=== PATIENT | male | born 1960 | race Caucasian/White ===

== ENCOUNTER 2022-12-20 06:08 | Observation (INO) ==
--- NOTE | 2022-12-13 10:42 | Anesthesiology Consultation ---
Date of Service December 13, 2022 Assessment & Plan (1) Encounter for pre-operative examination: - will request most recent [facility] cardiology office note and any available stress echo, echo, carotid or cardiac catheterization testing. - check BSG am DOS. - Per flat sorter processor on 12/13/2022: No known infectious disease contacts, current infectious disease symptoms in past 10 days or COVID positive test result in the past 90 days. Chart Review Chart Review: Pending: Refer to Additional Notes / Consult section and Patient NOT seen in Pre Admission Testing History Surgery Operation Date: 12/20/22 07:30 Proposed Procedures p Robotic assisted Laparoscopic Radical Retropubic Prostatectomy, Possible Open Pelvic Lymph Node Dissection - Reinaldo Calhoun MD Height/Weight Height: 6 ft Weight: 100.698 kg Allergies Allergy/AdvReac Type Severity Reaction Status Date / Time lisinopril Allergy Unknown Verified 12/13/22 07:36 rosiglitazone [From Avandia] Allergy Unknown Verified 12/13/22 07:36 Medications Home Medications Medication Instructions Recorded Confirmed Last Taken aspirin 81 mg tablet,delayed 81 mg PO HS 02/01/21 12/13/22 Unknown release (Adult Low Dose Aspirin) duloxetine 60 mg capsule,delayed 60 mg PO HS 02/01/21 12/13/22 Unknown release insulin glargine U-300 conc 300 100 unit subcut QAM 02/01/21 12/13/22 Unknown unit/mL (1.5 mL) subcutaneous pen (Toujeo SoloStar U-300 Insulin) levothyroxine 200 mcg capsule 200 mcg PO QAM 02/01/21 12/13/22 Unknown losartan 25 mg tablet 25 mg PO DAILY 02/01/21 12/13/22 Unknown meloxicam 15 mg tablet 15 mg PO DAILY 02/01/21 12/13/22 Unknown metformin 1,000 mg tablet 1,000 mg PO BID 02/01/21 12/13/22 Unknown pioglitazone 15 mg tablet 15 mg PO DAILY 02/01/21 12/13/22 Unknown sildenafil 50 mg tablet 50 mg PO DAILY PRN sexual 02/01/21 12/13/22 Unknown intercourse simvastatin 40 mg tablet 40 mg PO HS 02/01/21 12/13/22 Unknown dulaglutide 4.5 mg/0.5 mL 4.5 mg subcut Q7D 12/13/22 12/13/22 Unknown subcutaneous pen injector (Trulicity) Past Medical History Medical History (Updated 12/13/22 @ 10:37 by Sheri Escalante PA-C) CKD (chronic kidney disease) stage 2, GFR 60-89 ml/min Diabetes mellitus, type 2 IDDM Hyperlipemia Hypertension Hypothyroidism Prostate cancer Sleep apnea per PCP records Past Family History Family History Mother Cancer Lung cancer Brother Prostate cancer Sister Cancer Leukemia Past Surgical History Surgical History History of carpal tunnel surgery History of lumbar surgery x3 Hx of arthroscopy of right knee Hx of colonoscopy Hx of knee surgery rt. Social History Smoking Status: Never smoker Do You Dip or Chew Tobacco: Yes (1 can/2 days; advised) Hx Alcohol Use: Yes alcohol intake frequency: holidays/special occasions only Hx Substance Use: No substance use type: does not use Lab Results Anesthesia Preop Results Results Anesthesia Widget: Urine Appearance Clear 12/05/22 Testing Laboratory Results 11/30/2022 WBC: 7.3 H/H: 16/48 PLATELETS: 200 SODIUM: 139 POTASSIUM: 4.6 CHLORIDE: 109 CO2: 28 BUN: 26 CREATININE: 1.2 GLUCOSE: 150 Urine culture: no growth < 1,000 CFU/ml Electrocardiogram Date: 11/30/22 Sinus bradycardia with sinus arrhythmia, rate 48 bpm Chest X-Ray Date: 11/30/22 No acute cardiopulmonary disease Other Testing Bone scan 09/07/22 Degenerative foci of uptake are seen without suspicious lesions. In particular the left iliac wing and left superior pubic ramus lesions seen on prior CT did not demonstrate corresponding uptake. Abdomen pelvis CT 09/05/22 1. There are a few sclerotic lesions involving the left iliac bone and left superior pubic ramus. Sclerotic metastatic disease cannot be excluded in this patient with concern for prostate cancer. A few lucencies are nonspecific. 2. Prostatomegaly is seen. Diffuse bladder wall thickening may represent chronic outlet obstruction.
[~2022-12-20 06:08] MED LIST: HEPARIN SOD 5,000 UNIT/0.5 ML VIAL SQ SCH; LR 15ML/HR IV SCH; ceFAZolin 2000MG 2,000 MG/15 ML SYR IV SCH
[2022-12-20] MEDS: HEPARIN SOD 5,000 UNIT/0.5 ML VIAL SQ SCH ×3 (06:43→21:26)
[2022-12-20] MEDS ORDERED: MIDAZOLAM HCL 1 MG/ML 2ML VIAL ONE (06:52)
[2022-12-20] MEDS ORDERED: fentaNYL citrate PF 100 MCG/2 ML VIAL ONE (06:52)
[2022-12-20] MEDS ORDERED: BUPIVACAINE 0.5 % 5 MG/1 ML MPF 30ML VIAL ONE (07:07)
[2022-12-20] MEDS ORDERED: ACETAMINOPHEN 1000 MG/100 ML IV IV ONE (07:09)
--- NOTE | 2022-12-20 07:18 | History & Physical Bridge Note ---
Date of Service December 20, 2022 History & Physical Bridge Note I have examined the patient, reviewed the History & Physical and in the interval since the performance of the History & Physical I have noted the following changes of clinical significance: no changes noted
[2022-12-20] MEDS ORDERED: ONDANSETRON INJ 2 MG/ML 2 ML VIAL IV PRN ×2 (07:27→11:38)
[2022-12-20] MEDS ORDERED: ATROPINE SULFATE 0.1 MG/ML 10ML SYR IV PRN (07:27)
[2022-12-20] MEDS ORDERED: ePHEDrine sulfate 50 MG/ML AMP IV PRN (07:27)
[2022-12-20] MEDS ORDERED: HYDROmorphone INJ 2 MG/ML SYR/VIAL ONE (08:00)
[2022-12-20] MEDS ORDERED: ONDANSETRON INJ 2 MG/ML 2 ML VIAL ONE (08:18)
[2022-12-20] MEDS ORDERED: GLYCOPYRROLATE 0.2 MG/ML VIAL ONE (08:18)
[2022-12-20] MEDS ORDERED: LIDOCAINE 2% 2 ML VIAL/AMP(20MG/ML) INFIL ONE (08:18)
[2022-12-20] MEDS ORDERED: DEXAMETHASONE SOD INJ 4 MG/ML VIAL ONE (08:18)
[2022-12-20] MEDS ORDERED: PROPOFOL IV EMULSION 10 MG/ML 20 ML VIAL IV ONE (08:18)
[2022-12-20] MEDS ORDERED: NEOSTIGMINE METHYLSULFATE 1 MG/ML 10ML VIAL ONE (08:18)
[2022-12-20] MEDS ORDERED: SURGICEL ABSORB HEMOSTAT 2IN X 14IN TOP ONE (08:50)
[2022-12-20] MEDS ORDERED: FLOSEAL HEMOSTATIC MATRIX 10ML TOP ONE (08:50)
[2022-12-20] MEDS ORDERED: ceFAZolin 1000MG 1,000 MG/7.5 ML SYR IV ONE (08:51)
[2022-12-20] MEDS ORDERED: SUGAMMADEX SODIUM 200 MG/2 ML VIAL IV ONE (09:11)
--- NOTE | 2022-12-20 10:23 | Operative Report ---
PG Post Operative Report Pre & Post Diagnosis Operation Date: 12/20/22 07:30 Pre-Op Diagnosis: Prostate Cancer Post-Op Diagnosis: Prostate Cancer I identified the patient and participated in the time-out.: Yes Procedure Operation Date: 12/20/22 07:30 Actual Procedures p Robotic assisted Laparoscopic Prostatectomy, Pelvic Lymph Node Dissection(Not Applicable) - Reinaldo Calhoun MD Surgeon Reinaldo Calhoun MD Diamond Setter Layne Long Estimated Blood Loss 100 Findings Consistent with Post-Op Diagnosis Specimens 1. Periprostatic fat 2. Right pelvic lymph nodes 3. Left pelvic lymph nodes 4. Prostate seminal vesicle Description of Procedure The patient was identified in the preoperative holding area, appropriate informed consents were reviewed and completed, and he was transported to the operating suite. Subcutaneous heparin was administered in the pre-operative holding area. Upon arrival in the operating suite, he received appropriate antibiotics and general anesthesia. He was positioned in dorsal lithotomy, a B&O suppository was inserted after digital rectal exam, and he was prepped and draped in standard fashion. A Waldron catheter was inserted in the sterile field. A Veress needle was passed per umbilicus with uniform insufflation of the abdomen to 15mmHg. He was placed in steep Trendelenburg position. A periumbilical incision was then made to accommodate a 12mm Visiport with 10mm 0degree laparoscope. Inspection of the abdomen was carried out, and there was no evidence of traumatic entry or injury secondary to the Veress needle. After confirming a clear anterior abdominal wall, ports were subsequently placed in standard robotic prostatectomy fashion without incident. To begin the robotic portion of the case, the left lateral aspect of the sigmoid was mobilized off of the left pelvic side wall to allow the pouch of Addison to be appropriately visualized. I then made an incision in the pouch of Addison, overlying the seminal vesicles. Both SVs as well as the ampullae of the vasa were entirely dissected, with the vasa transected 3cm from the prostate. The medial umbilical ligaments were then controlled with bipolar electrocautery just inferior to the umbilicus. Following cauterization, they were divided utilizing monopolar cautery. A peritoneal incision was carried from this location to the medial aspect of the internal inguinal rings bilaterally with care to avoid opening through the ring. This incision was concluded when the vas deferens was reached. Dissection of the bladder and prostate off of the posterior aspect of the pubic arch was completed allowing full visualization of the prostate. The fat overlying the prostate was removed en bloc and passed off the table as a specimen labeled "periprostatic fat". The endopelvic fascia was cleared during this portion of the procedure, and subsequently opened - first on the right and then the left. The incision through the endopelvic fascia began near the prostate-bladder junction and was carried to the apex with extreme care to preserve all lateral levator musculature as well as the periurethral m usculature and sphincter complex. I additionally preserved the puboprostatic ligaments. I then controlled the DVC with a 3-0 V-lock suture in overlapping/figure of 8 fashion. The lymph node dissection was then conducted. External iliac vessels were identified on the pelvic side wall. The packet of fat and lymphatic tissue that resides just under the iliac vein was elevated and off of the vein with a split and roll technique. The packet was dissected laterally to the circumflex vein and distally to the obturator nerve which was preserved. The proximal aspect of the packet was carried towards the bifurcation of the iliac vessels. A combination of monopolar and bipolar cautery were used to assist with control. After completing the dissection on both sides, the packets were collected and passed off of the table as specimens labeled "pelvic lymph nodes". My attention then returned to the prostate, with identification of the bladder neck aided by gentle traction on the Waldron catheter and lateral to medial pressure at the presumed level of the bladder neck with the robotic instruments. An anterior cystotomy was made, the Waldron balloon deflated and the catheter guided through the incision to allow anterior retraction. I attempted to preserve maximal bladder neck musculature as I circumferentially dissected around the bladder neck. After incision through the posterior aspect of the mucosa, the dissection was carried through detrusor muscle until the bilateral ampullae of the vasa were identified. The previously dissected vasa and SVs were brought through the incision and used to elevated the prostate anteriorly. A posterior plane behind the prostate was then developed - splitting Denonvilliers's fascia. This dissection was carried as far as possible towards the apex as well as far as possible laterally. An incision in the lateral prostatic fascia was then made bilaterally to facilitate control of the vascular pedicles and preservation of the nerve bundles. Vasculature running along the posterior/lateral aspect of the prostate was preserved as well as the tissue containing the nerves. The pedicles were then controlled with a series of Weck clips. The apical attachments of the prostate were remaining at that stage. The DVC was divided after control with bipolar cautery over the prostate. Continuous inspection from anterior and lateral views allowed me to closely follow the apical contour of the prostate and maximally preserve urethral length and tissue. The prostate was entirely freed at that point, and collected in an EndoCatch bag before being moved out of the field of vision. Hemostasis was confirmed and anastomosis of the bladder and urethra was completed utilizing a double armed V- Lock stitch. A new Waldron catheter was inserted and the anastomosis tested with irrigation. There was no evidence of leak. A madeline style stitch was placed bilaterally to functionally marsupialize the area of the lymph node dissection. The robot was undocked, the specimen extracted through expansion of the ericka- umbilical camera port. Of note, an umbilical hernia was noted at the beginning of the case and I opened through the umbilicus to close the fascial defect. The fascia was closed with a series of 0-PDS figure of 8 stitches. The right clothing sales assistant port was closed in two layers - with a figure of 8 0-Vicryl to reapproximate the fascia followed by 4-0 Monocryl to close the skin. Monocryl was used to close all other skin incisions. All wounds were dressed with Dermabond. The case was concluded and the patient taken to the PACU in stable condition. Layne Long assisted from incision to closure I attest to the content of the Intraoperative Record and any orders documented therein. Any exceptions are noted below.
[2022-12-20] MEDS: HYDROmorphone INJ 1 MG/ML SYRINGE IV PRN ×3 (10:50→11:05)
--- NOTE | 2022-12-20 11:36 | Anesthesiology Progress Note ---
Date of Service December 20, 2022 Anesthesia Post Procedure Vital Signs Vital Signs: Temp Pulse Pulse Resp BP Pulse Ox O2 Del Method 12/20/22 11:30 60 16 151/75 H 96 Nasal Cannula 12/20/22 11:20 36.6 C 59 L 16 167/85 H 98 Nasal Cannula 12/20/22 11:10 57 L 16 155/71 H 97 Nasal Cannula 12/20/22 11:00 55 L 16 157/79 H 100 Nasal Cannula 12/20/22 10:50 55 L 18 163/80 H 97 Room Air 12/20/22 10:40 55 L 14 169/97 H 100 Oxymask 12/20/22 10:30 36.2 C L 58 L 14 168/88 H 100 Oxymask 12/20/22 06:50 36.6 C 55 L 18 149/66 H 96 Room Air O2 Flow Rate 12/20/22 11:30 2 12/20/22 11:20 2 12/20/22 11:10 2 12/20/22 11:00 2 12/20/22 10:50 12/20/22 10:40 6 12/20/22 10:30 6 12/20/22 06:50 Pain Intensity Abdomen: Pain Intensity: 5 Transfer of Care Handoff Completed per policy Notes Mental Status: alert / awake / arousable Patient Amnestic to Procedure: Yes Nausea / Vomiting: adequately controlled Pain: adequately controlled Airway Patency, RR, SpO2: stable & adequate BP & HR: stable & adequate Hydration State: stable & adequate Anesthetic Complications: no major complications apparent and Pt Satisfied with anesthetic care
[2022-12-20] MEDS ORDERED: oxyCODONE HCL IR 5 MG TAB (IMMEDIATE RELEASE) PO PRN ×2 (11:38)
[2022-12-20] MEDS ORDERED: ACETAMINOPHEN 325 MG TAB PO PRN (11:38)
[2022-12-20] MEDS ORDERED: PHARMACY GLYCEMIC MGMT CONSULT PRN (11:38)
[2022-12-20] MEDS ORDERED: MoRPHine SULFATE 2 MG/ML CARP IV PRN ×2 (11:38→11:46)
[2022-12-20 12:05] LABS: Basophils # (auto) 0.09 K/uL (0.00-0.20); Basophils % (auto) 0.8 %; Eosinophils # (auto) 0.15 K/uL (0.00-0.50); Eosinophils % (auto) 1.3 %; Hematocrit (blood only) 46.3 % (42.0-52.0); Hemoglobin 15.1 g/dl (14.0-18.0); Immature Granulocytes # (auto) 0.06 K/uL (0.01-0.20); Immature Granulocytes % (auto) 0.5 %; Lymphocytes # (auto) 0.95 K/uL (1.20-3.40); Lymphocytes % (auto) 7.9 %; Mean Corpuscular Hgb Conc 32.6 g/dL (32.0-36.0); Mean Platelet Volume 12.5 fL (9.4-12.4); Monocytes # (auto) 0.16 K/uL (0.11-0.59); Monocytes % (auto) 1.3 %; Neutrophils # (auto) 10.57 K/uL (1.40-6.50); Neutrophils % (auto) 88.2 %; Platelet Count 142 K/uL (130-400); RDW Coefficient of Variation 13.6 % (11.5-14.5); RDW Standard Deviation 44.1 fL (36.4-46.3); White Blood Count 11.98 K/ul (4.8-10.8)
[2022-12-20 12:06] LABS: BUN Creatinine Ratio 20.5 (10-20); Calcium 8.7 mg/dl (8.6-10.3); Est GFR (African American) 69.2 ml/min; Est GFR (Non-African American) 59.7 ml/min; Potassium 5.1 mmol/L (3.5-5.1)
[2022-12-20] MEDS: LACTATED RINGER'S 1,000 ML IV SCH ×2 (12:25→21:32)
[2022-12-20] MEDS: INSULIN ASPART PER UNIT CHARGE SC SCH ×3 (12:29→21:27)
[2022-12-20] MEDS ORDERED: GLUCAGON FOR INJ 1 MG VIAL IM PRN (12:30)
[2022-12-20] MEDS ORDERED: GLUCOSE 10 TAB/TUBE PO PRN (12:30)
[2022-12-20] MEDS ORDERED: CARBOHYDRATES FOR HYPOGLYCEMIA PO PRN (12:30)
[2022-12-20] MEDS ORDERED: GLUCOSE 40% GEL 15 GM TUBE PO PRN (12:30)
[2022-12-20] MEDS ORDERED: DEXTROSE 50% 50 ML SYRINGE IV PRN (12:30)
--- NOTE | 2022-12-20 13:29 | Pharmacy Report ---
Pharmacy Glycemic Short Note 2 - Date of Service December 20, 2022 - Glycemic Short BSG Results (Last 24 hours): 12/20/22 12/20/22 12/20/22 06:42 10:35 11:27 Glucose 260 H POC Glucose 168 H 204 H 12/20/22 11:51 Glucose POC Glucose 221 H OUTPATIENT ANTIDIABETIC REGIMEN: * Lantus 100 units SQ daily * dulaglutide 4.5mg SQ weekly * empagliflozin 25mg PO daily * metformin 1gm PO BID * pioglitazone 15mg PO daily HbA1c: ____ ASSESSMENT: * Patient is a 62 year old male POD #0 robotic assisted lap prostatectomy. History of DM2 on insulin and several other anti-hyperglycemic medications at home. Pharmacy consulted to assist with glycemic management while admitted. * BSGs 168-221gmd/L pre and post op. Received IV dex intra-operatively. Currently ordered clears. Took Lantus 50 units this AM pre-op. * Will plan for additional Lantus this evening per scale depending on BSG. Novolog severe stress scale for now given steroids and elevated post op BSG. Overnight checks. PLAN FOR INPATIENT GLYCEMIC CONTROL: * Hold outpatient oral diabetes medications * Basal insulin * Lantus per scale at HS (0 units if BSG less than 140mg/dl, 15 units if BSG 140-200mg/dL, or 30 units if BSG 200mg/dL or greater) * Bolus insulin * NovoLog per scale ACHS or Q6hrs while NPO * Goal Range: Low 110 mg/dL - High 140 mg/dL * Correction Factor: 15 mg/dL/unit * Nutritional / Prandial insulin per carb ratio of 1 unit per 5 grams CHO consumed
[2022-12-20] MEDS: ceFAZolin 2000MG 2,000 MG/15 ML SYR IV SCH ×2 (15:48→23:53)
[2022-12-20] MEDS ORDERED: SIMVASTATIN 40 MG TAB PO SCH (21:00)
[2022-12-20] MEDS ORDERED: LANTUS PER UNIT CHARGE SC SCH (21:00)
[2022-12-20] MEDS ORDERED: DULoxetine HCL 60 MG CAP PO SCH (21:00)
[2022-12-20] MEDS: DOCUSATE SODIUM 100 MG CAP PO SCH (21:26)
[2022-12-20] MEDS: PREGABALIN 75 MG CAP PO SCH (21:26)
[2022-12-21] MEDS: INSULIN ASPART PER UNIT CHARGE SC SCH ×4 (00:29→12:07)
[2022-12-21] MEDS ORDERED: LEVOTHYROXINE SODIUM 200 MCG TABLET PO SCH (06:30)
[2022-12-21 06:47] LABS: Basophils # (auto) 0.06 K/uL (0.00-0.20); Basophils % (auto) 0.4 %; Eosinophils # (auto) 0.04 K/uL (0.00-0.50); Eosinophils % (auto) 0.3 %; Hematocrit (blood only) 42.6 % (42.0-52.0); Hemoglobin 14.2 g/dl (14.0-18.0); Immature Granulocytes # (auto) 0.05 K/uL (0.01-0.20); Immature Granulocytes % (auto) 0.3 %; Lymphocytes # (auto) 1.25 K/uL (1.20-3.40); Lymphocytes % (auto) 8.7 %; Mean Corpuscular Hgb Conc 33.3 g/dL (32.0-36.0); Mean Corpuscular Volume 87.1 fL (80.0-100.0); Mean Platelet Volume 12.4 fL (9.4-12.4); Monocytes # (auto) 0.92 K/uL (0.11-0.59); Monocytes % (auto) 6.4 %; Neutrophils # (auto) 12.03 K/uL (1.40-6.50); Neutrophils % (auto) 83.9 %; Platelet Count 175 K/uL (130-400); RDW Coefficient of Variation 13.4 % (11.5-14.5); RDW Standard Deviation 42.4 fL (36.4-46.3); Red Blood Count 4.89 M/uL (4.70-6.10); White Blood Count 14.35 K/ul (4.8-10.8)
[2022-12-21 07:18] LABS: Calcium 8.6 mg/dl (8.6-10.3); Est GFR (African American) 77.2 ml/min; Est GFR (Non-African American) 66.7 ml/min; Potassium 4.8 mmol/L (3.5-5.1)
[2022-12-21] MEDS: LACTATED RINGER'S 1,000 ML IV SCH (07:27)
[2022-12-21 07:51] LABS: Estimated Average Glucose 169 mg/dl; Hemoglobin A1C 7.5 % (4.5-5.6)
[2022-12-21] MEDS: PREGABALIN 75 MG CAP PO SCH (08:03)
[2022-12-21] MEDS: DOCUSATE SODIUM 100 MG CAP PO SCH (08:03)
[2022-12-21] MEDS: HEPARIN SOD 5,000 UNIT/0.5 ML VIAL SQ SCH (08:04)
[2022-12-21] MEDS ORDERED: LANTUS PER UNIT CHARGE SC SCH (09:00)
[2022-12-21] MEDS ORDERED: LOSARTAN POTASSIUM 25 MG TAB PO SCH (09:00)
[2022-12-21] MEDS ORDERED: MELOXICAM 7.5 MG TAB PO SCH (09:00)
--- NOTE | 2022-12-21 09:15 | Urology Progress Note ---
Date of Service December 21, 2022 Assessment & Plan (1) Prostate cancer: Plan: Postop day #1 status post prostatectomy Recovering well Plan for discharge home this morning Advance diet, Waldron teaching now Admission and Anticipated Discharge Date Admission Date: December 20, 2022 Subjective No major issues overnight Recovering very well Feels well Labs stable Urine clear Likely discharge home this morning Physical Exam Physical Exam: Incisions healing nicely Results & Data Vital Signs (Past 12 Hours) Vital Signs Temp Pulse Resp BP BP Pulse Ox O2 Del Method 12/21/22 07:33 36.6 C 62 16 143/66 H 96 Room Air 12/21/22 04:20 36.7 C 62 14 127/57 L 94 Room Air 12/20/22 23:28 36.7 C 68 18 151/84 H 96 Room Air PG Care Time/CCT Total # of Minutes Spent Total Time Spent with Patient: Total time spent is greater than 50% in coordination of care (as documented) at patient's floor/unit and/or counseling patient: Coding Level of Care Code None Diagnoses Prostate cancer C61
--- NOTE | 2022-12-21 15:22 | Discharge Summary ---
Date of Service December 21, 2022 Admission HPI Per Admitting Provider 62-year-old male with prostate cancer admitted for robotic prostatectomy Admission Exam Per Admitting Provider General: Alert and oriented, no acute distress HEENT: Normocephalic, mucous membranes moist Pulmonary: Nonlabored respirations Abdomen: Nondistended Extremities: Moves all 4 spontaneously Neuro: No gross deficits Skin: Warm, dry, no rashes noted Principal Diagnosis Prostate Cancer Discharge Exam Constitutional well developed and well nourished; no acute distress Respiratory no respiratory distress and no labored breathing Gastrointestinal (Abdomen) Percussion/Palpation: abdomen soft; abdomen nontender Incisions appropriate, Dermabond intact. Neurologic moves all extremities and awake Psychiatric A+Ox3, euthymic affect Genitourinary Waldron catheter intact, urine is clear yellow Discharge Data Allergies Allergy/AdvReac Type Severity Reaction Status Date / Time lisinopril Allergy Unknown Verified 12/20/22 06:24 rosiglitazone [From Avandia] Allergy Unknown Verified 12/20/22 06:24 Procedures Performed Operation Date: 12/20/22 07:30 Actual Procedures p Robotic assisted Laparoscopic Prostatectomy, Pelvic Lymph Node Dissection(Not Applicable) - Reinaldo Calhoun MD Hospital Course (1) Prostate cancer: Plan 62-year-old male admitted status post robotic prostatectomy with Dr. Calhoun. Patient tolerated procedure well. No acute issues postoperatively. He remained afebrile and hemodynamically stable. Labs were appropriate. Patient reported minimal pain. Ambulated without issue. Tolerated diet. Patient was subsequently discharged home on postop day #[address] with Waldron catheter in place. He was in stable condition at time of discharge. All discharge instructions were reviewed with patient and . Appropriate postoperative follow-up appointments were in place. All questions were answered. Total Time Total Time Spent Total Time Spent (In Minutes): 15 Discharge Plan Discharge Items Patient Disposition: Home - Self-Care Reason For Visit: Prostate Cancer Discharge Diagnosis: Prostate Cancer Activity: Per Instructions section Lifting: No more than 25 pounds Bathing Comment: Ok to shower. No tub baths or soaks. Sexual Activity: Wait until after follow-up appointment Exercise/Sports: Wait until after follow-up appointment Driving/Machine Use: Do not drive if taking prescription pain medication. Non-emergency contact: Surgeon and Urologist Call non-emergency contact if: you have any medication questions, your pain is worsening, your pain is unusual for you, you have a fever, your temperature is above 101, your wound has increased redness, your wound has increased drainage and your wound pain has increased Follow-up/Referrals: Reinaldo Calhoun MD [Physician] - 01/04/23 9:00 am Eliseo Patricio [Primary Care Provider] - [facility],Nurse [FAKE FOR SCHEDULES] - 12/26/22 9:15 am Diet: Carb Consistent or DM2 Addtl Attending Provider Instructions: Please take all medications as prescribed and keep follow-ups as scheduled. Please call our office at [phone] with any questions, concerns or need to reschedule appointments for any reason. We are happy to assist you. While catheter is in place, please wash with warm soapy water and a fresh washcloth twice a day with mild bar soap (Dove, Dial, etc.). Your nursing visit appointment to have your catheter removed should already be made, if you have any question regarding this, please call our office. We have sent an antibiotic to your pharmacy of choice. Please begin antibiotic as prescribed the day BEFORE your scheduled catheter removal at [facility]. Please continue antibiotic every 12 hours until complete. It is okay to take AZO (available over the counter) as needed for a few days to relieve burning with urination. This may cause your urine or feces to turn an orangish-color. This is expected. The only exception is if you have been prescribed Pyridium (phenazopyridine), this is the same medication and should not take AZO be taken in addition to prescription version. Please do not drive, drink alcohol or operate machinery while taking prescription pain medication. We recommend continuing a stool softener (i.e. Colace) to prevent constipation/straining for at least two weeks after your procedure. Some blood is to be expected in your urine as you heal, you may even see recurrences of blood in your urine for up to 4-6 months after your procedure. Drink plenty of fluids, avoid sexual or strenuous exercise and do not lift >25 pounds until your follow-up. Call [facility] at [phone] right away if you have any of the following: Chest pain or trouble breathing (call 911 or go to the hospital) Fever of 101F or higher, uncontrolled vomiting Heavy bleeding, clots, or bright red blood from the catheter Catheter that falls out or stops draining Foul-smelling discharge from your catheter Redness, swelling, warmth, or increased pain at your incision site Drainage, pus, or bleeding from your incision Pending Studies at Discharge: Yes (pathology) Stand-Alone Forms: My [facility], Smoking Cessation Medications and DC Order Prescriptions: New ciprofloxacin HCl 500 mg tablet 500 mg PO BID 3 Days Qty: 6 0RF Rx Instructions: Start 1 day prior to catheter removal docusate sodium [Colace] 100 mg capsule 100 mg PO BID Qty: 30 0RF Rx Instructions: Take twice daily for 2 weeks, then as needed thereafter oxycodone-acetaminophen [Percocet] 5-325 mg tablet 1 tab PO Q8H PRN (Reason: pain) Qty: 7 0RF Continued aspirin [Adult Low Dose Aspirin] 81 mg tablet,delayed release (DR/EC) 81 mg PO HS duloxetine 60 mg capsule,delayed release(DR/EC) 60 mg PO HS levothyroxine 200 mcg capsule 200 mcg PO QAM losartan 25 mg tablet 25 mg PO DAILY meloxicam 15 mg tablet 15 mg PO DAILY metformin 1,000 mg tablet 1,000 mg PO BID pioglitazone 15 mg tablet 15 mg PO DAILY sildenafil 50 mg tablet 50 mg PO DAILY PRN (Reason: sexual intercourse) Rx Instructions: administer 30 minutes to 4 hours before activity simvastatin 40 mg tablet 40 mg PO HS Touyesi SoloStar U-300 Insulin 300 unit/mL (1.5 mL) insulin pen 100 unit subcut QAM Rx Instructions: "took half dose today as instructed" Trulicity 4.5 mg/0.5 mL pen injector 4.5 mg SUBCUT Q7D Patient Comments: takes - took 12/15/22 AM (0600) Jardiance 25 mg Tablet 25 mg PO QAM pregabalin [Lyrica] 75 mg Capsule 75 mg PO BID Discharge Orders: Discharge Order (Routine); Ordered 12/21/22 Ordered By: Layne Cornell/Other Patient Handouts: Managing Type 2 Diabetes, Leg Bag Care Dc, Waldron Catheter Male Ch Admission Data Admit Date/Time: 12/20/22 10:38 Attending Provider: Reinaldo Calhoun Admit Provider: Reinaldo Calhoun Primary Care Provider: Eliseo Patricio Other Interventions: Discharge Summary Assessment (RN) Last Done: 12/21/22 12:14 Coding Level of Care Code 64890 IN/OBS DISCH 30 MIN/LESS Diagnoses Prostate cancer C61
== END 2022-12-21 13:09 | disposition home or self-care (01) ==
LOC: ASU 06:08 → INTOOBSV 10:38 → 3E 10:38